=== PATIENT | female | born 2000 | race Caucasian/White ===

== ENCOUNTER 2020-08-09 13:38 | Emergency (ER) | payer MEDICAID ==
[~2020-08-09] VITALS: Ht 162.6 cm; Wt 81.6 kg
[2020-08-09 13:41] VITALS: BP 130/82; Ht 162.6 cm; Wt 81.6 kg
== END 2020-08-09 16:40 | disposition home or self-care (01) ==
LOC: ED 13:38
DX: B34.9 Viral infection, unspecified (principal); Z20.828 Contact with and (suspected) exposure to other viral communicable diseases; Z88.1 Allergy status to other antibiotic agents
CPT/HCPCS: Q0092